=== PATIENT | female | born 1955 | race American Indian/Alaskan Native ===

== ENCOUNTER 2018-10-01 13:07 | Emergency (ER) | payer BC ==
[2018-10-01 13:17] VITALS: BMI 28.3
[2018-10-01 13:22] VITALS: TEMP 97.6
[2018-10-01] MEDS: Albuterol-Ipratrop 3 mg / 0.5 (3 ml) UD IH STA ×2 (13:50→14:08)
[2018-10-01] MEDS ORDERED: Magnesium Sulfate 1 gm in D5W 1 GM/100 ML BAG IVPB ONE (13:57)
[2018-10-01] MEDS ORDERED: Albuterol 0.083% Inhal Sol (2.5 mg/3 mL) UD INH STA ×3 (13:57→16:28)
--- NOTE | 2018-10-01 14:03 | ED PDOC ---
Arrival/HPI - General Chief Complaint: Respiratory Distress Time Seen by Provider: 10/01/18 13:13 Historian: Patient - History of Present Illness Narrative History of Present Illness (Text): 10/01/18 13:57 62 y/o F, ex-smoker, with past medical history of diabetes, hypertension, hyperlipidemia, and COPD, presents to the ED for evaluation of shortness of breath and cough since past 3 days. Patient reports associated chest tightness and white sputum, intermittently improved with nebulizer treatments. Patient informs worsening symptoms since onset, prompting her to present to the ED for medical evaluation. Patient denies any other associated somatic complaints. Patient denies any fevers, chills, headache, dizziness, abdominal pain, nausea, vomiting, diarrhea, back pain, neck pain, or any other complaints. Patient informs compliance with the flu shot this year. Time/Duration: < week Symptom Onset: Gradual Symptom Course: Unchanged Activities at Onset: Light Context: Home Past Medical History - Provider Review Nursing Documentation Reviewed: Yes - Infectious Disease Hx of Infectious Diseases: None - Cardiac Hx Cardiac Disorders: Yes Hx Hypertension: Yes - Pulmonary Hx Respiratory Disorders: Yes Hx Asthma: Yes Hx Chronic Obstructive Pulmonary Disease (COPD): Yes - Neurological Hx Neurological Disorder: No - HEENT Hx HEENT Disorder: No - Renal Hx Renal Disorder: No - Endocrine/Metabolic Hx Endocrine Disorders: Yes Hx Diabetes Mellitus Type 2: Yes - Hematological/Oncological Hx Blood Disorders: No - Integumentary Hx Dermatological Disorder: No - Musculoskeletal/Rheumatological Hx Musculoskeletal Disorders: No - Gastrointestinal Hx Gastrointestinal Disorders: No - Genitourinary/Gynecological Hx Genitourinary Disorders: No - Psychiatric Hx Psychophysiologic Disorder: No Hx Substance Use: No - Surgical History Hx Orthopedic Surgery: Yes (Back) Family/Social History - Physician Review Nursing Documentation Reviewed: Yes Smoking Status: Former Smoker Hx Alcohol Use: Yes Frequency of alcohol use: Socially Hx Substance Use: No Allergies/Home Meds Allergies/Adverse Reactions: Allergies seafood Allergy (Uncoded 10/01/18 13:17) ANAPHYLAXIS Home Medications: Home Meds Medication Instructions Recorded Confirmed Albuterol 0.083% [Albuterol 0.083% 2.5 mg INH PRN PRN 10/01/18 10/01/18 Inhal Ariadna (2.5 mg/3 ml) UD] Atorvastatin [Lipitor] 20 mg PO DAILY 10/01/18 10/01/18 MetFORMIN [glucoPHAGE] 1,000 mg PO BID 10/01/18 10/01/18 Pantoprazole [Protonix EC Tab] 40 mg PO DAILY 10/01/18 10/01/18 Tiotropium [Spiriva] 18 mcg INH DAILY 10/01/18 10/01/18 amLODIPine [Norvasc] 10 mg PO DAILY 10/01/18 10/01/18 Review of Systems - Physician Review All systems were reviewed & negative as marked: Yes - Review of Systems Constitutional: absent: Fevers Respiratory: SOB, Cough, Sputum Cardiovascular: Other (Chest tightness) Gastrointestinal: absent: Abdominal Pain, Diarrhea, Nausea, Vomiting Genitourinary Female: absent: Dysuria, Urine Output Changes Musculoskeletal: absent: Back Pain, Neck Pain Skin: absent: Rash Neurological: absent: Headache, Dizziness Psychiatric: absent: Anxiety Physical Exam Vital Signs Reviewed: Yes Vital Signs Temp Pulse Resp BP Pulse Ox 10/01/18 13:20 97.6 F 92 H 16 132/78 97 Temperature: Afebrile Blood Pressure: Normal Pulse: Regular Respiratory Rate: Normal Appearance: Positive for: Well-Appearing, Non-Toxic, Comfortable Pain Distress: None Mental Status: Positive for: Alert and Oriented X 3 Finger Stick Blood Glucose: 134 - Systems Exam Head: Present: Atraumatic, Normocephalic Pupils: Present: PERRL Extroacular Muscles: Present: EOMI Conjunctiva: Present: Normal Mouth: Present: Moist Mucous Membranes Neck: Present: Normal Range of Motion Respiratory/Chest: Present: Good Air Exchange, Wheezes (Audible wheeze to anterior and posterior lung bases), Other (Speaking in short sentences). No: Respiratory Distress, Accessory Muscle Use Cardiovascular: Present: Regular Rate and Rhythm, Normal S1, S2. No: Murmurs Abdomen: No: Tenderness, Distention, Peritoneal Signs Back: Present: Normal Inspection Upper Extremity: Present: Normal Inspection. No: Cyanosis, Edema Lower Extremity: Present: Normal Inspection. No: Edema Neurological: Present: GCS=15, CN II-XII Intact Skin: Present: Warm, Dry, Normal Color. No: Rashes Psychiatric: Present: Alert, Oriented x 3, Normal Insight, Normal Concentration Medical Decision Making ED Course and Treatment: 10/01/18 14:00 Impression: 62 year old female presents to the ED for evaluation of shortness of breath and cough since 3 days. Differential Diagnosis included but are not limited to: -- Pneumonia -- COPD exacerbation -- Bronchitis -- Influenza Plan: -- Labs -- Chest X-ray -- Albuterol -- Duoneb -- Magnesium sulfate -- Solumedrol -- Rapid Flu A/B -- Reassess and disposition Prior Visits: Notes and results from previous visits were reviewed. Progress Notes: 10/01/18 15:22 Labs reviewed with no leukocytosis or elctrolyte abnormalities. UA negative for bacteria or leukocyte esterases. Patient reevaluated and still complains of chest tightness. He is stable for discharge. - Lab Interpretations Lab Results: 10/01/18 14:00 10/01/18 14:00 Lab Results 10/01/18 14:00: Sodium 141, Potassium 3.2 L, Chloride 101, Carbon Dioxide 31, Anion Gap 12, BUN 7, Creatinine 0.7, Est GFR ( Amer) > 60, Est GFR (Non- Af Amer) > 60, Random Glucose 106, Calcium 10.0, Total Bilirubin 0.5, AST 40 H, ALT 19, Alkaline Phosphatase 131 H, Total Protein 8.7 H, Albumin 4.8, Globulin 3.9, Albumin/Globulin Ratio 1.2 10/01/18 14:00: WBC 9.6, RBC 4.93, Hgb 13.9, Hct 42.7, MCV 86.6, MCH 28.2, MCHC 32.6, RDW 14.0, Plt Count 281, MPV 9.1, Neut % (Auto) 68.4 H, Lymph % (Auto) 20.5 L, Villalba % (Auto) 8.8 H, Eos % (Auto) 2.1, Baso % (Auto) 0.2, Lymph # (Auto) 2.0, Villalba # (Auto) 0.8 H, Eos # (Auto) 0.2, Baso # (Auto) 0.02, Absolute Neuts (auto) 6.55 H 10/01/18 14:00: Influenza Typ A,B (EIA) Negative for flu a/b 10/01/18 13:23: POC Glucose (mg/dL) 134 H I have reviewed the lab results: Yes - RAD Interpretation Radiology Orders: 10/01/18 13:37 CHEST PORTABLE [RAD] Stat - Medication Orders Current Medication Orders: Discontinued Medications Albuterol/Ipratropium (Duoneb 3 Mg/0.5 Mg (3 Ml) Ud) 3 ml IH STAT STA Stop: 10/01/18 13:35 Last Admin: 10/01/18 13:50 Dose: 3 ml Methylprednisolone (Solu-Medrol) 125 mg IVP STAT STA Stop: 10/01/18 13:35 - Scribe Statement The provider has reviewed the documentation as recorded by the Scribe Helen Monterroso. All medical record entries made by the Scribe were at my direction and personally dictated by me. I have reviewed the chart and agree that the record accurately reflects my personal performance of the history, physical exam, medical decision making, and the department course for this patient. I have also personally directed, reviewed, and agree with the discharge instructions and disposition. Disposition/Present on Arrival - Present on Arrival Any Indicators Present on Arrival: No History of DVT/PE: No History of Uncontrolled Diabetes: No Urinary Catheter: No History of Decub. Ulcer: No History Surgical Site Infection Following: None - Disposition Have Diagnosis and Disposition been Completed?: Yes Diagnosis: Asthma attack Disposition: HOME/ ROUTINE Disposition Time: 16:40 Patient Plan: Discharge Patient Problems: Current Active Problems Problem Status Onset Asthma attack Acute Condition: IMPROVED Discharge Instructions (ExitCare): Asthma, Adult (DC), Avoiding Asthma Triggers, Medicines for Asthma, Rescue vs Controller Inhalers Print Language: FRENCH Additional Instructions: All medical record entries made by the Scribe were at my direction and personally dictated by me. I have reviewed the chart and agree that the record accurately reflects my personal performance of the history, physical exam, medical decision making, and the department course for this patient. I have also personally directed, reviewed, and agree with the discharge instructions and disposition. Please visit your PCP in 3-5 days Prescriptions: Albuterol 0.042% [Albuterol 0.042% Inhal Ariadna (1.25mg/3ml) UD] 3 ml IH Q6H #4 ariadna Albuterol HFA [Ventolin HFA 90 mcg/actuation (8 g)] 200 puff IH Q6H #1 puff Ipratropium 0.02% [Atrovent] 0.5 mg IH Q6H #3 neb Methylprednisolone [Medrol Dose Pack (21 tabs)] 4 mg PO DAILY #21 mg Referrals: [facility] [place] - Follow up with primary Bernie Lovell MD [Medical Doctor] - Follow up with primary Allen Laguerre MD [Staff Provider] - Follow up with primary Forms: [employer] (Croatian), WORK NOTE
[2018-10-01 14:10] LABS: BASO # 0.02 K/mm3 (0.0-2.0); BASO % 0.2 % (0.0-3.0); EOS # 0.2 (0.0-0.7); EOS % 2.1 % (1.5-5.0); HEMOGLOBIN 13.9 g/dL (12.0-16.0); LYMPH % 20.5 % (22.0-35.0); MEAN CELL VOLUME 86.6 fl (80.0-105.0); MEAN CORPUSCULAR HEMOGLOBIN 28.2 pg (25.0-35.0); MEAN CORPUSCULAR HGB CONC 32.6 g/dl (31.0-37.0); MEAN PLATELET VOLUME 9.1 fl (7.0-11.0); MONO # 0.8 (0.1-0.6); MONO % 8.8 % (1.0-6.0); RBC 4.93 10^6/uL (3.5-6.1); WHITE BLOOD COUNT 9.6 10^3/uL (4.5-11.0)
[2018-10-01 14:24] LABS: ALB/GLOB RATIO 1.2 (1.1-1.8); ALBUMIN 4.8 g/dL (3.0-4.8); ALT/SGPT 19 U/L (7-56); AST/SGOT 40 U/L (14-36); BLOOD UREA NITROGEN 7 mg/dL (7-21); GFR NON-AFRICAN AMERICAN > 60
--- NOTE | 2018-10-01 14:40 | RAD ---
Date of service: 10/01/2018 HISTORY: sob COMPARISON: No prior. FINDINGS: LUNGS: No active pulmonary disease. PLEURA: No significant pleural effusion identified, no pneumothorax apparent. CARDIOVASCULAR: No aortic atherosclerotic calcification present. Normal cardiac size. No pulmonary vascular congestion. OSSEOUS STRUCTURES: No significant abnormalities. VISUALIZED UPPER ABDOMEN: Normal. OTHER FINDINGS: None. IMPRESSION: No active disease.
[2018-10-01 17:10] VITALS: BP 118/68; PULSE 99; RESP 18; O2SAT 98
== END 2018-10-01 17:11 | disposition home or self-care (01) ==
LOC: ED 13:07
DX: J45.909 Unspecified asthma, uncomplicated (principal); I10 Essential (primary) hypertension; E11.9 Type 2 diabetes mellitus without complications; E78.5 Hyperlipidemia, unspecified; Z87.891 Personal history of nicotine dependence
CPT/HCPCS: 71045; 80053; 82948; 85025; 87804; 96365; 96375; 99284; J2930; J3475